=== PATIENT | female | born 1965 | race African-American/Black ===

== ENCOUNTER 2016-08-31 21:20 | Emergency (ER) | payer OTHER ==
[~2016-08-31] VITALS: Ht 182.9 cm; Wt 92.0 kg
[~2016-08-31 21:20] MED LIST: IBUP800T23 PO
[2016-08-31 21:23] VITALS: BP 137/79; PULSE 87; RESP 16; TEMP 98; O2SAT 98
[2016-08-31] MEDS ORDERED: HYDR-3533 PO (22:10)
[2016-08-31] MEDS ORDERED: SILV1CRE20 TOPICAL (22:10)
[2016-08-31] MEDS ORDERED: IBUP800T23 PO (22:10)
[2016-08-31] MEDS ORDERED: IBUPROFEN 600 MG TAB PO ONE (22:15)
[2016-08-31] MEDS ORDERED: SILVER SULFADIAZINE 1% CR 50 GM JAR TOPICAL ONE (22:15)
[2016-08-31] MEDS ORDERED: ACETAMINOPHEN/HYDROcodone 325 MG/5 MG TAB PO ONE (22:15)
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
== END 2016-08-31 22:48 | disposition home or self-care (01) ==
LOC: NEPD 21:20
DX: T23.102A Burn of first degree of left hand, unspecified site, initial encounter (principal); X12.XXXA Contact with other hot fluids, initial encounter; Y93.G3 Activity, cooking and baking; Y92.000 Kitchen of unspecified non-institutional (private) residence as the place of occurrence of the external cause; Y99.8 Other external cause status
CPT/HCPCS: 16000

== ENCOUNTER 2016-11-15 15:21 | Emergency (ER) | payer OTHER ==
[~2016-11-15] VITALS: Ht 182.9 cm; Wt 90.0 kg
[~2016-11-15 15:21] MED LIST changes: +HYDR-3533 PO; +SILV1CRE20 TOPICAL
[2016-11-15 15:23] VITALS: BP 130/79; PULSE 88; RESP 20; TEMP 98.3; O2SAT 98
[2016-11-15] MEDS ORDERED: ONDANSETRON ODT 4 MG TAB PO ONE (15:45)
[2016-11-15] MEDS ORDERED: MECLIZINE HCL 25 MG TAB PO ONE (15:45)
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
[2016-11-15] MEDS ORDERED: ZOFR4TAB3 SL (16:25)
[2016-11-15] MEDS ORDERED: MECL12.574 PO (16:25)
== END 2016-11-15 16:35 | disposition home or self-care (01) ==
LOC: NEPK 15:21
DX: R42 Dizziness and giddiness (principal); R51 Headache; R11.0 Nausea; M54.6 Pain in thoracic spine; M62.830 Muscle spasm of back; V43.32XA Unspecified car occupant injured in collision with other type car in nontraffic accident, initial encounter; Y92.481 Parking lot as the place of occurrence of the external cause
CPT/HCPCS: 99284

== ENCOUNTER 2017-04-12 16:04 | Emergency (ER) | payer OTHER ==
[~2017-04-12] VITALS: Ht 182.9 cm; Wt 91.0 kg
[~2017-04-12 16:04] MED LIST changes: -HYDR-3533 PO; -IBUP800T23 PO; +MECL12.574 PO; -SILV1CRE20 TOPICAL; +ZOFR4TAB3 SL
[2017-04-12 16:06] VITALS: BP 114/83; PULSE 83; RESP 12; TEMP 98.6; O2SAT 98
--- NOTE | 2017-04-12 17:38 | PD ---
HPI Chief Complaint: Laceration/Skin Injury Time Seen by Provider: 17:26 Travel History International Travel<30 days: No Contact w/Intl Traveler<30days: No Traveled to known affect area: No History of Present Illness HPI 52-year-old female presents to the emergency department with a laceration to the distal left index finger. States she was slicing up some potatoes with a new knife and accidentally sliced her finger. States her finger is throbbing and is painful. States that the very tip of her finger feels numb but otherwise denies any other numbness or tingling. He does have full range of motion of her finger. She is mainly concerned that she will not be able to perform the rest of her thanksgiving duties. PFSH Past Medical History Medical History: Denies Significant Hx Blood Disorders: No Cancer: No Cardiovascular Problems: No Diminished Hearing: No Endocrine: No Gastrointestinal Disorders: No Immune Disorder: No Musculoskeletal: No Neurologic: No Psychiatric: No Respiratory: No Immunizations Current: No ?: Not : 2 Para: 2 Miscarriage: 0 : 0 Tubal Ligation: Yes Past Surgical History Abdominal Surgery: No Hysterectomy: Yes (PARTIAL) Neurologic Surgery: No Pacemaker: No Thoracic Surgery: No Other Surgery: Yes (TUBAL LIGATION) Social History Alcohol Use: No Tobacco Use: No Substance Use: No Allergies-Medications (Allergen,Severity, Reaction): Coded Allergies: No Known Allergies (Verified Adverse Reaction, Unknown, 04/12/17) Reported Meds & Prescriptions Reported Meds & Active Scripts Active Keflex (Cephalexin) 500 Mg Cap 500 Mg PO Q8H 7 Days Zofran Odt (Ondansetron Odt) 4 Mg Tab 4 Mg SL Q6HR PRN Meclizine (Meclizine HCl) 12.5 Mg Tab 12.5 Mg PO QID PRN Review of Systems Except as stated in HPI: all other systems reviewed are Neg Physical Exam Narrative GENERAL: Well-developed well-nourished in mild distress SKIN: Focused skin assessment warm/dry. HEAD: Atraumatic. Normocephalic. EYES: Pupils equal and round. No scleral icterus. No injection or drainage. ENT: No nasal bleeding or discharge. Mucous membranes pink and moist. NECK: Trachea midline. No JVD. CARDIOVASCULAR: Regular rate and rhythm. No murmur appreciated. RESPIRATORY: No accessory muscle use. Clear to auscultation. Breath sounds equal bilaterally. GASTROINTESTINAL: Abdomen soft, non-tender, nondistended. Hepatic and splenic margins not palpable. MUSCULOSKELETAL: No obvious deformities. No clubbing. No cyanosis. No edema. NEUROLOGICAL: Awake and alert. No obvious cranial nerve deficits. Motor grossly within normal limits. Normal speech Left Index finger- 1-1/2 cm laceration on the finger pad extending that stops at her nail. No nail involvement. Patient does not have finger prick sensation to the distal aspect of finger however, the remaining is neurovascular intact. PSYCHIATRIC: Appropriate mood and affect; insight and judgment normal. Data Data Last Documented VS Vital Signs Date Time Temp Pulse Resp B/P (MAP) Pulse Ox O2 Delivery O2 Flow Rate FiO2 04/12/17 16:06 98.6 83 12 114/83 (93) 98 Orders Orders Wound Care (04/12/17 18:44) Ed Discharge Order (04/12/17 18:48) MDM Medical Decision Making Medical Screen Exam Complete: Yes Emergency Medical Condition: Yes Differential Diagnosis Left index finger laceration versus avulsion versus abrasion Narrative Course 52-year-old female presents to the emergency department with a laceration to the distal left index finger. States she was slicing up some potatoes with a new knife and accidentally sliced her finger. States her finger is throbbing and is painful. States that the very tip of her finger feels numb but otherwise denies any other numbness or tingling. He does have full range of motion of her finger. She is mainly concerned that she will not be able to perform the rest of her thanksgiving duties. Vital signs stable Physical exam- linear laceration to the distal aspect of her left finger, bleeding controlled, no tendon or ligament involvement. Distal aspect- numbness , remaining portion of finger sensation intact. I consulted my attending Dr. Alan regarding the numbness at the distal end of the finger. I explained to the patient that she may not regain the sensation of the distal aspect of finger however, this does not necessarily require a follow-up with a hand surgeon. I did advise patient to follow up with her primary care physician. Advised on wound care and suture removal. Antibiotics for prophylaxis. Last tetanus 2 years ago. Patient understood and will comply Procedures Procedure Narrative LACERATION LOCATION: Distal left index finger pad LENGTH: 1.5 cm NUMBER OF STITCHES/ALVERTO: 4 4-0 Prolene REPAIR: The area of the laceration was prepped with Betadine and sterilely draped. A digital block performed with 1% lidocaine without epi. The wound was copiously irrigated and explored without evidence of foreign body, tendon injury. See note regarding neurovascular status and physical exam findings The wound was closed using 4-0 Prolene. This was a single layer repair. A sterile dressing was applied. The patient was advised to keep the dressing clean and dry. Patient tolerated the procedure well. Diagnosis Primary Impression: Finger laceration Qualified Codes: S61.211A - Laceration without foreign body of left index finger without damage to nail, initial encounter Referrals: Primary Care Physician Additional Instructions: Keep area clean and dry Keep current dressing on for 24 hours. Change dressing every day. Follow-up with your primary care physician within 2 days. Suture removal in 7-10 days Medications as prescribed Scripts Cephalexin (Keflex) 500 Mg Cap 500 MG PO Q8H for Infection for 7 Days, #21 CAP 0 Refills Prov: Jeaneth Alan MD 04/12/17 Disposition: 01 DISCHARGE HOME Condition: Stable Shelbie Hickman Apr 12, 2017 17:38
[2017-04-12] MEDS ORDERED: CEPH-460 PO (18:46)
== END 2017-04-12 19:22 | disposition home or self-care (01) ==
LOC: NEPD 16:04
DX: S61.211A Laceration without foreign body of left index finger without damage to nail, initial encounter (principal); W26.0XXA Contact with knife, initial encounter; Y93.G3 Activity, cooking and baking; Y92.000 Kitchen of unspecified non-institutional (private) residence as the place of occurrence of the external cause
CPT/HCPCS: 12001